=== PATIENT | male | born 1960 | race Caucasian/White ===

== ENCOUNTER 2025-04-29 13:29 | Day surgery (SDC) | payer MEDICARE ==
[2025-04-22 14:49] LABS: MEAN PLATELET VOLUME 7.0 FL (7.4-10.4); PRE OP HEMATOCRIT 45.3 % (42.0-52.0); PRE OP HEMOGLOBIN 15.6 g/dL (14.0-17.9); PRE OP PLATELET COUNT 249 X10'3 (140-440); PRE OP WHITE BLOOD COUNT 9.6 10'3 (4.8-10.8); RED CELL DISTRIBUTION WIDTH 14.1 % (11.5-14.5)
--- NOTE | 2025-04-22 14:50 | ELECTROCARDIOGRAPH REPORT ---
[facility] Test Date: 2025-04-22 Test Time: 14:48:52 Pat Name: JYOTI RIVERS Department: [facility]-PRE-OP Patient ID: [id number] Room: Gender: M Pres[employer] Paraprofessional: HARRISON : 1960 Requested By: TIFFANIE HARDIN Order Number: [id number] Reading MD: Dr. Eric Simpson Measurements Intervals [place] Rate: 59 P: 60 NE: 139 QRS: 66 QRSD: 92 T: 5 QT: 562 QTc: 557 Interpretive Statements Sinus rhythm Atrial premature complexes Left atrial abnormality RSR' in V1 or V2, right VCD or RVH Prolonged QT interval Electronically Signed On 04-23-2025 8:52:[address] Eric Simpson Please click the below link to view image of tracing.
[2025-04-22 15:09] LABS: CREATININE 1.06 MG/DL (0.60-1.10); PRE OP ALT 41 U/L (30-65); PRE OP ANION GAP 7 (8-16); PRE OP AST 20 U/L (10-37); PRE OP BILIRUB, TOTAL 0.5 MG/DL (0.0-1.0); PRE OP GLUCOSE 100 MG/DL (70-104); PRE OP POTASSIUM 4.4 MMOL/L (3.4-5.1); PRE OP SODIUM 138 MMOL/L (135-145); TOTAL CARBON DIOXIDE 28.1 MMOL/L (24-32); eGFR 70 ML/MIN
[2025-04-29] VITALS (10 sets, daily range): BP systolic 129–160; BP diastolic 81–100; PULSE 70–85; RESP 12–21; TEMP 98.1; O2SAT 94–98
[~2025-04-29] VITALS: Ht 177.8 cm; Wt 98.9 kg
[~2025-04-29 13:29] MED LIST: VITAMIN C PO; VITAMIN D PO; ringers solution, lacted 1,000 ML IV SCH
[2025-04-29] MEDS: ceFAZolin 2gm/dext,iso 50mL 50 ML IV ONE (14:03)
[2025-04-29] MEDS ORDERED: ringers solution, lacted 1,000 ML IV SCH ×2 (14:55→16:40)
[2025-04-29] MEDS ORDERED: morphine 4 MG/ML inj SYRINge IV PRN ×4 (14:55→16:40)
[2025-04-29] MEDS ORDERED: hydrALAZINE 20mg/ml inj. IV PRN ×2 (14:55→16:40)
[2025-04-29] MEDS ORDERED: labetalol 20mg/4ml (5mg/ml) syringe IV PRN ×2 (14:55→16:40)
[2025-04-29] MEDS ORDERED: acetaminophen 1,000mg/100ml IV 100 ML IV PRN (14:55)
[2025-04-29] MEDS ORDERED: HYDROmorphone/PF 0.2 MG/ML SYRINGE IV PRN ×4 (14:55→16:40)
[2025-04-29] MEDS ORDERED: ondansetron/PF 4mg/2ml inj IV PRN ×2 (14:55→16:40)
[2025-04-29] MEDS ORDERED: BUPIVAcaine 2.5mg/ml inj 50ml vial (contains preservative) ONE (16:24)
[2025-04-29] MEDS ORDERED: LIDOcaine 1% 30ml preserv. free vial ONE (16:24)
[2025-04-29] MEDS ORDERED: midazolam 1 mg/ML 2ml injection ONE (16:44)
[2025-04-29] MEDS ORDERED: fentaNYL /PF 50mcg/ml 5ml ampule ONE (16:56)
[2025-04-29] MEDS ORDERED: dexamethasone sod phosphate 4mg/ml inj. ONE (16:57)
[2025-04-29] MEDS ORDERED: LIDOcaine 1%/PF 5ML 10 MG/ML VIAL ONE ×2 (16:58)
[2025-04-29] MEDS ORDERED: propofol inj 20 ML IV ONE (16:58)
[2025-04-29] MEDS ORDERED: rocuronium 10mg/ml inj IV ONE (16:58)
[2025-04-29] MEDS ORDERED: ondansetron/PF 4mg/2ml inj ONE (16:58)
[2025-04-29] MEDS ORDERED: ePHEDrine 50MG/ML INJ. ONE (17:29)
[2025-04-29] MEDS ORDERED: 0.9 % SODIUM CHLORIDE 10 ML VIAL ONE (17:55)
[2025-04-29] MEDS ORDERED: HYDROcodone/acetaminophen 5mg/325mg tablet PO PRN (18:05)
[2025-04-29] MEDS: acetaminophen 1,000mg/100ml IV 100 ML IV PRN (18:07)
--- NOTE | 2025-04-29 18:22 | OPERATIVE REPORT ---
Operative Report Providers to CC CC: PRAKASH HARDIN MD ~ Date of Procedure: Apr 29, 2025 Pre-Operative Diagnosis: Umbilical hernia, left inguinal hernia Post-Operative Diagnosis SAME as PRE-Op Procedure Performed 1 cm umbilical hernia repair Robotic assisted, laparoscopic left inguinal hernia repair with mesh Surgeon: Prakash Hardin MD FACS Dental Secretary None Anesthesiologist: Nadia Simpson Type of Anesthesia: General Findings: Modest sized indirect left inguinal hernia Evidence of previous plug repair of right inguinal hernia 1 cm umbilical hernia Complications None Prosthetics\Implants used: Extra Large left Dextile inguinal hernia mesh Estimated Blood Loss: Minimal Specimen Removed: None Description of Procedure: Patient was brought to the operating room and identified by the nursing staff and the attending physician. Patient was placed supine and general anesthesia was induced. Patient's abdomen was prepped and draped in standard sterile fashion. Preoperative antibiotics were given. Supraumbilical incision was made to allow for standard Benoit entry technique. During dissection, an umbilical hernia was encountered. This was fairly small only about 1 cm in diameter. Herniated preperitoneal fat was mobilized away from the fascial defect excised and discarded. The fascial edges were freshened and the defect was used for Benoit port placement. Laparoscope was inserted after insufflation. Bilateral, 8.5 mm robotic trochars were placed under laparoscopic guidance following administration of local anesthetic. The da Neri robotic arm was docked to the patient and instruments placed intra-abdominally under laparoscopic visualization. The right hemipelvis was examined and showed no evidence of right inguinal hernia. There was evidence of previous plug repair but no evidence of recurrence. Preperitoneal flap was created and carried down to the symphysis pubis. The retropubic space of Retzius was developed and the bladder swept medially. Dissection was carried out laterally until an indirect left inguinal hernia sac was identified. This was moderate in size. Hernia sac was completely mobilized and reduced. Peritoneum was completely dissected away from the cord structures The critical view of the myopectineal orifice was achieved. Dissection was carried out laterally to allow space for mesh deployment. An extra- mesh and suture was passed intra-abdominally. Mesh was laid in the preperitoneal space covering both indirect, direct, and potential femoral and obturator hernias. Mesh laid without wrinkles or folds. 3 tacking sutures usi ng 0 Ethibond were used to fix the mesh at the symphysis pubis, rectus abdominis, and just anterior to the anterior superior iliac spine. The peritoneal rent was then closed with running, 2/0, absorbable locking suture. Clemons were retrieved. Abdomen was deflated and secondary trochars removed. Fascia at the umbilical port site was closed with a combination of 0 Ethibond and 0 Vicryl sutures thus repairing the 1 cm hernia defect at the umbilicus. Skin incisions were closed with 4-0 Monocryl sutures in a subcuticular fashion. Sterile dressings were applied. Patient was awakened and taken to the postanesthesia care unit in stable condition. Counts repoted as correct: Yes PRAKASH HARDIN MD Apr 29, 2025 18:22
== END 2025-04-29 19:31 | disposition home or self-care (01) ==
LOC: PAS 13:29
PROVIDERS: ATTEND Surgery
DX: K40.90 Unilateral inguinal hernia, without obstruction or gangrene, not specified as recurrent (principal); K42.9 Umbilical hernia without obstruction or gangrene; I49.1 Atrial premature depolarization; I10 Essential (primary) hypertension; E66.9 Obesity, unspecified; G47.33 Obstructive sleep apnea (adult) (pediatric); F32.A Depression, unspecified; I25.2 Old myocardial infarction; F17.210 Nicotine dependence, cigarettes, uncomplicated; Z79.899 Other long term (current) drug therapy; Z90.89 Acquired absence of other organs; Z98.890 Other specified postprocedural states; Z68.31 Body mass index [BMI] 31.0-31.9, adult
CPT/HCPCS: 36415; 49591; 49650; 80053; 82948; 85025; 93005; A4215; A4618; C1781; J0131; J1100; J2003; J2250; J2405; J2704; J3010; J3490; J7030; J7120; Z7506; Z7508; Z7512; Z7610